=== PATIENT | female | born 1980 | race Caucasian/White ===

== ENCOUNTER 2016-03-21 08:16 | Emergency (ER) ==
[2016-03-21 08:22] VITALS: BP 129/91; TEMP 98.2; BMI 42.1
--- NOTE | 2016-03-21 08:40 | ED.PDOC ---
General ED Provider: Dr. LEXIS DRIVER Chief Complaint: Back Pain Stated Complaint: low back pain Time Seen by Physician: 08:16 (seen with MAY at all times ) Mode of Arrival: Walk-In Information Source: Patient Exam Limitations: No limitations Primary Care Provider: JON TELLES Nursing and Triage Documentation Reviewed and Agree: Yes Musculoskeletal Complaint Exam - Back Pain Complaint/Exam Mechanism of Injury: Reports: No known trauma Onset/Duration: chronic Symptoms Are: Still present Timing: Intermittent Episodes Lasting: Hours Initial Severity: Moderate Current Severity: Moderate Character: Reports: Spasmodic, Stiffness Aggravating: Reports: Movements, Lifting, Bending, Walking Alleviating: Reports: Rest, Position Associated Signs and Symptoms: Denies: Swelling, Redness, Bruising, Fever, Weakness, Numbness, Tingling, Abdominal pain, Flank pain, Bladder incontinence, Bowel incontinence, Weight loss, Pain with weight bearing Related History: Reports: Similar episode Cauda Equina Risk Factors: Reports: None Epidural Abcess Risk Factors: Reports: None Related Surgical History: Reports: None Focal Tenderness: No Paraspinal Muscle Tenderness: No Paraspinal Muscle Spasm: No Scoliosis: No Lordosis: No Kyphosis: No SLR Test: Right Negative, Left Negative Hip Motion Testing Pain: Right Negative, Left Negative Focal Weakness: Present: None Focal Sensory Loss: Present: None Gait: Present: Normal Differential Diagnoses: Strain, Sprain Review of Systems - Review Of Systems Constitutional: Reports: No symptoms Eyes: Reports: No symptoms Ears, Nose, Mouth, Throat: Reports: No symptoms Respiratory: Reports: No symptoms Cardiac: Reports: No symptoms GI: Reports: No symptoms : Reports: No symptoms Musculoskeletal: Reports: Back pain Skin: Reports: No symptoms Neurological: Reports: No symptoms Endocrine: Reports: No symptoms Hematologic/Lymphatic: Reports: No symptoms All Other Systems: Reviewed and Negative Past Medical History - Past Medical History Endocrine: Reports: None Cardiovascular: Reports: Hypertension Respiratory: Reports: None Hematological: Reports: None Gastrointestinal: Reports: None Genitourinary: Reports: Kidney stones Neuro/Psych: Reports: None Musculoskeletal: Reports: Joint Pain Cancer: Reports: None Last Menstrual Period: feb 2016 - Surgical History General Surgical History: Reports: , Other (lithotrypsy), Unknown - Family History Family History: Reports: Unknown - Social History Smoking Status: Current every day smoker, Light tobacco smoker Hx Substance Use: No Alcohol Screening: None Physical Exam - Physical Exam Appearance: Well-appearing, No pain distress, Well-nourished Eyes: CONCEPCIÓN, EOMI, Conjunctiva clear ENT: Ears normal, Nose normal, Oropharynx normal Respiratory: Airway patent, Breath sounds clear, Breath sounds equal, Respirations nonlabored Cardiovascular: RRR, Pulses normal, No rub, No murmur GI/: Soft, Nontender, No masses, Bowel sounds normal, No Organomegaly Musculoskeletal: Normal strength, ROM intact, No edema, No calf tenderness Skin: Warm, Dry, Normal color Neurological: Sensation intact, Motor intact, Reflexes intact, Cranial nerves intact, Alert, Oriented Psychiatric: Affect appropriate, Mood appropriate Critical Care Note - Critical Care Note Total Time (mins): 0 Course - Course Vital Signs: Temp Pulse Resp BP Pulse Ox 03/21/16 08:16 98.2 F 83 20 129/91 H 97 Departure - Departure Time of Disposition: 08:39 Disposition: HOME SELF-CARE Discharge Problem: Backache Instructions: Back Pain (ED) Condition: Good Pt referred to PMD for follow-up: No Allergies/Adverse Reactions: Allergies ciprofloxacin [From Cipro] Allergy (Intermediate, Verified 03/21/16 08:23) low b/p Home Medications: Ambulatory Orders Lisinopril/Hydrochlorothiazide [Lisinopril-Hctz 20-12.5 Mg Tab] 1 each PO BID Hydrocodone/Acetaminophen [[place] 5-325 Tablet] 1 each PO Q6HR PRN #12 tablet 01/25
== END 2016-03-21 08:48 | disposition home or self-care (01) ==
LOC: ED 08:16
DX: M54.5 Low back pain (principal); F17.210 Nicotine dependence, cigarettes, uncomplicated
CPT/HCPCS: 99282

== ENCOUNTER 2016-05-22 13:03 | Emergency (ER) ==
[2016-05-22 13:09] VITALS: BP 143/95; TEMP 97.7; BMI 41.5
[2016-05-22] MEDS ORDERED: DECADRON 4 MG/ML SDV IM STA (13:12)
[2016-05-22] MEDS ORDERED: MORPHINE 4 MG/ML SYRINGE IM STA (13:12)
[2016-05-22] MEDS ORDERED: ZOFRAN 4 MG/2 ML IM STA (13:12)
[2016-05-22] MEDS ORDERED: TORADOL IM STA (13:12)
[2016-05-22] MEDS ORDERED: VALIUM SYRINGE IM STA (13:13)
[2016-05-22 13:24] LABS: BILIRUBIN,URINE Negative (NEGATIVE); KETONES,URINE Negative (NEGATIVE); LEUKOCYTE ESTERASE ,URINE 2+ (NEGATIVE); NITRITE,URINE Negative (NEGATIVE); PH,URINE 5.5 (5-9); PROTEIN,URINE Negative (NEGATIVE); URINE, BLOOD 1+ (NEGATIVE)
[2016-05-22 13:27] LABS: ADD URINE MICROSCOPIC YES
[2016-05-22 13:28] LABS: BACTERIA,URINE 1+ (NOT PRESENT)
--- NOTE | 2016-05-22 13:47 | ED.PDOC ---
General ED Provider: Dr. LEXIS DRIVER Chief Complaint: Back Pain Stated Complaint: back pain Time Seen by Physician: 13:00 Mode of Arrival: Walk-In Information Source: Patient Exam Limitations: No limitations Nursing and Triage Documentation Reviewed and Agree: Yes Musculoskeletal Complaint Exam - Back Pain Complaint/Exam Mechanism of Injury: Reports: No known trauma Onset/Duration: today Symptoms Are: Still present Timing: Constant Episodes Lasting: Hours Initial Severity: Moderate Current Severity: Moderate Location: Reports: Radiating (left leg) Character: Reports: Throbbing, Spasmodic, Stiffness Aggravating: Reports: Movements, Lifting, Bending, Walking Alleviating: Reports: Rest, Position Associated Signs and Symptoms: Denies: Swelling, Redness, Bruising, Fever, Weakness, Numbness, Tingling, Abdominal pain, Flank pain, Bladder incontinence, Bowel incontinence, Weight loss, Pain with weight bearing Related History: Reports: Similar episode TAD Risk Factors: Reports: None AAA Risk Factors: Reports: None Cauda Equina Risk Factors: Reports: None Epidural Abcess Risk Factors: Reports: None Related Surgical History: Reports: None Focal Tenderness: No Paraspinal Muscle Tenderness: No Paraspinal Muscle Spasm: No Scoliosis: No Lordosis: No Kyphosis: No SLR Test: Right Negative, Left Negative Hip Motion Testing Pain: Right Negative, Left Negative Focal Weakness: Present: None Focal Sensory Loss: Present: None Gait: Present: Abnormal Differential Diagnoses: Strain, Sprain Review of Systems - Review Of Systems Constitutional: Reports: No symptoms Eyes: Reports: No symptoms Ears, Nose, Mouth, Throat: Reports: No symptoms Respiratory: Reports: No symptoms Cardiac: Reports: No symptoms GI: Reports: No symptoms : Reports: No symptoms Musculoskeletal: Reports: Back pain Skin: Reports: No symptoms Neurological: Reports: No symptoms Endocrine: Reports: No symptoms Hematologic/Lymphatic: Reports: No symptoms All Other Systems: Reviewed and Negative Past Medical History - Past Medical History Endocrine: Reports: None Cardiovascular: Reports: Hypertension Respiratory: Reports: None Hematological: Reports: None Gastrointestinal: Reports: None Genitourinary: Reports: Kidney stones Neuro/Psych: Reports: None Musculoskeletal: Reports: Joint Pain Cancer: Reports: None Last Menstrual Period: last week - Surgical History General Surgical History: Reports: , Other (lithotrypsy), Unknown - Family History Family History: Reports: Unknown - Social History Smoking Status: Current every day smoker, Light tobacco smoker Hx Substance Use: No Alcohol Screening: None Physical Exam - Physical Exam Appearance: Well-appearing, No pain distress, Well-nourished Eyes: CONCEPCIÓN, EOMI, Conjunctiva clear ENT: Ears normal, Nose normal, Oropharynx normal Respiratory: Airway patent, Breath sounds clear, Breath sounds equal, Respirations nonlabored Cardiovascular: RRR, Pulses normal, No rub, No murmur GI/: Soft, Nontender, No masses, Bowel sounds normal, No Organomegaly Musculoskeletal: Normal strength, ROM intact, No edema, No calf tenderness Skin: Warm, Dry, Normal color Neurological: Sensation intact, Motor intact, Reflexes intact, Cranial nerves intact, Alert, Oriented Psychiatric: Affect appropriate, Mood appropriate Critical Care Note - Critical Care Note Total Time (mins): 0 Course - Course Orders, Labs, Meds: Lab Review 05/22/16 13:20 Urine Color Yellow Urine Clarity Clear Urine pH 5.5 Ur Specific [place] <=1.005 Urine Protein Negative Urine Glucose (UA) Negative Urine Ketones Negative Urine Blood 1+ Urine Nitrite Negative Urine Bilirubin Negative Urine Urobilinogen 0.2 Ur Leukocyte Esterase 2+ Urine Microscopic RBC 2-5 Urine Microscopic WBC 30-50 Ur Squamous Epith Cells 2-5 Urine Bacteria 1+ Orders Category Date Time Status URINALYSIS C & S IF INDICATED Stat LAB 05/22/16 13:20 Completed URINE CULTURE Stat LAB 05/22/16 13:27 Received Dexamethasone 4 mg/ml Inj [Decadron 4 mg/ml Sdv] MEDS 05/22/16 13:12 Discontinued 4 mg IM ONCE STA Diazepam Syringe [Valium Syringe] MEDS 05/22/16 13:13 Discontinued 2 mg IM ONCE STA Ketorolac Tromethamine [Toradol] MEDS 05/22/16 13:12 Discontinued 30 mg IM ONCE STA Morphine Sulfate [Morphine 4 mg/ml Syringe] MEDS 05/22/16 13:12 Discontinued 4 mg IM ONCE STA Ondansetron HCl/Pf [Zofran 4 mg/2 ml] MEDS 05/22/16 13:12 Discontinued 4 mg IM ONCE STA Medications Discontinued Medications Generic Name Dose Route Start Last Admin Trade Name Freq PRN Reason Stop Dose Admin Dexamethasone Sodium Phosphate 4 mg 05/22/16 13:12 05/22/16 13:34 Decadron 4 Mg/Ml Sdv IM 05/22/16 13:13 4 mg ONCE STA Administration Diazepam 2 mg 05/22/16 13:13 05/22/16 13:38 Valium Syringe IM 05/22/16 13:14 2 mg ONCE STA Administration Ketorolac Tromethamine 30 mg 05/22/16 13:12 05/22/16 13:36 Toradol IM 05/22/16 13:13 30 mg ONCE STA Administration Morphine Sulfate 4 mg 05/22/16 13:12 05/22/16 13:30 Morphine 4 Mg/Ml Syringe IM 05/22/16 13:13 4 mg ONCE STA Administration Ondansetron HCl 4 mg 05/22/16 13:12 05/22/16 13:31 Zofran 4 Mg/2 Ml IM 05/22/16 13:13 4 mg ONCE STA Administration Vital Signs: Temp Pulse Resp BP Pulse Ox 05/22/16 13:04 97.7 F 82 16 143/95 H 97 Departure - Departure Time of Disposition: 13:46 Disposition: HOME SELF-CARE Discharge Problem: Backache Sciatica Qualifiers: Laterality: unspecified laterality Qualifier Code: (M54.30) Sciatica, unspecified side Instructions: Sciatica (ED), Lumbar Radiculopathy (ED) Condition: Good Pt referred to PMD for follow-up: No Additional Instructions: Please call your Family Physician as soon as possible to schedule a follow-up appointment. Prescriptions: Hydrocodone/Acetaminophen [[place] 5-325 Tablet] 1 each PO Q6HR PRN #7 tablet PRN Reason: PAIN Allergies/Adverse Reactions: Allergies ciprofloxacin [From Cipro] Allergy (Intermediate, Verified 05/22/16 13:09) low b/p Home Medications: Ambulatory Orders Lisinopril/Hydrochlorothiazide [Lisinopril-Hctz 20-12.5 Mg Tab] 1 each PO BID Hydrocodone/Acetaminophen [[place] 5-325 Tablet] 1 each PO Q6HR PRN #7 tablet Disposition Discussed With: Patient, Family
[2016-05-22] MEDS ORDERED: LIDOCAINE 1 % AMP 5 ML (SUTURES) IM STA (13:48)
[2016-05-22] MEDS ORDERED: ROCEPHIN IM STA (13:48)
[2016-05-29 13:11] LABS: AEROBIC + ANAEROB SUSC Final report (.); BACTERIA IDENTIFICATION Final report (.)
== END 2016-05-22 14:44 | disposition home or self-care (01) ==
LOC: ED 13:03
DX: N39.0 Urinary tract infection, site not specified (principal); M54.42 Lumbago with sciatica, left side; F17.210 Nicotine dependence, cigarettes, uncomplicated; Z87.442 Personal history of urinary calculi
CPT/HCPCS: 36415; 81001; 87077; 87086; 87186; 96372; 99283

== ENCOUNTER 2016-06-25 00:11 | Emergency (ER) ==
[2016-06-25 00:14] VITALS: BMI 41.5
[2016-06-25 00:22] VITALS: BP 138/99; TEMP 98.6
[2016-06-25] MEDS ORDERED: PHENERGAN 25 MG/ML VIAL IM STA (00:28)
[2016-06-25] MEDS ORDERED: DILAUDID 2 MG/ML SYRINGE IM STA (00:28)
--- NOTE | 2016-06-25 00:31 | ED.PDOC ---
General ED Provider: Dr. DRAKE CARL-ER Chief Complaint: Back Pain Stated Complaint: jarek got sciatica--jarek been dealing with it for years...recently saw hillary rodney and have mri of the back pending--noting pain tonite going down the left leg Time Seen by Physician: 00:30 Mode of Arrival: Wheelchair Information Source: Patient Exam Limitations: No limitations Primary Care Provider: JON TELLES Nursing and Triage Documentation Reviewed and Agree: Yes Musculoskeletal Complaint Exam - Back Pain Complaint/Exam Mechanism of Injury: Reports: No known trauma Onset/Duration: several mos Symptoms Are: Still present Timing: Constant Initial Severity: Mild Current Severity: Moderate Location: Reports: Discrete Character: Reports: Dull, Aching, Spasmodic Aggravating: Reports: Movements, Lifting, Bending, Walking Alleviating: Reports: None Associated Signs and Symptoms: Denies: Swelling, Redness, Bruising, Fever, Weakness, Numbness, Tingling, Abdominal pain, Flank pain, Bladder incontinence, Bowel incontinence, Weight loss, Pain with weight bearing Related History: Reports: Previous back injury Epidural Abcess Risk Factors: Reports: None Related Surgical History: Reports: None Focal Tenderness: Yes Paraspinal Muscle Tenderness: Yes Paraspinal Muscle Spasm: No Scoliosis: No Lordosis: No Kyphosis: No SLR Test: Right Negative, Left Negative Hip Motion Testing Pain: Left Negative Focal Weakness: Present: None Focal Sensory Loss: Present: None Gait: Present: Normal Differential Diagnoses: Arthritis, Herniated Disk, Strain, Sprain Review of Systems - Review Of Systems Constitutional: Reports: No symptoms Eyes: Reports: No symptoms Ears, Nose, Mouth, Throat: Reports: No symptoms, Throat swelling Respiratory: Reports: No symptoms Cardiac: Reports: No symptoms GI: Reports: No symptoms : Reports: No symptoms Musculoskeletal: Reports: Back pain Skin: Reports: No symptoms Neurological: Reports: No symptoms Endocrine: Reports: No symptoms Hematologic/Lymphatic: Reports: No symptoms All Other Systems: Reviewed and Negative Past Medical History - Past Medical History Endocrine: Reports: None Cardiovascular: Reports: Hypertension Respiratory: Reports: None Hematological: Reports: None Gastrointestinal: Reports: None Genitourinary: Reports: Kidney stones Neuro/Psych: Reports: None Musculoskeletal: Reports: Joint Pain Cancer: Reports: None Last Menstrual Period: 2 weeks ago - Surgical History General Surgical History: Reports: , Other (lithotrypsy), Unknown - Family History Family History: Reports: Unknown - Social History Smoking Status: Current every day smoker, Light tobacco smoker Hx Substance Use: No Alcohol Screening: None Lives: With family - Immunizations Tetanus Shot up to Date: Yes Physical Exam - Physical Exam Appearance: Well-appearing, No pain distress, Well-nourished Pain Distress: Moderate Eyes: CONCEPCIÓN ENT: Ears normal, Nose normal, Oropharynx normal Neck: Supple Respiratory: Airway patent Cardiovascular: RRR, Pulses normal, No rub, No murmur GI/: Soft, Nontender, No masses, Bowel sounds normal, No Organomegaly Musculoskeletal: Limited ROM Skin: Warm, Dry, Normal color Neurological: Sensation intact, Motor intact, Reflexes intact, Cranial nerves intact, Alert, Oriented Psychiatric: Affect appropriate, Mood appropriate Re-Evaluation - Re-Evaluation Time of Re-Evaluation: 00:45 Status: Improved Vital Signs Stable: Yes Pain Level: 1 Appearance: NAD Lungs: Clear Skin: Warm and Dry Neuro: Alert and Oriented X3 CV: RRR Critical Care Note - Critical Care Note Total Time (mins): 0 Course - Course Orders, Labs, Meds: Orders Category Date Time Status Hydromorphone HCl/Pf [Dilaudid 2 mg/ml Syringe] MEDS 06/25/16 00:28 Stat 2 mg IM ONCE STA Promethazine HCl [Phenergan 25 mg/ml Vial] MEDS 06/25/16 00:28 Stat 25 mg IM ONCE STA Medications Generic Name Dose Route Start Last Admin Trade Name Freq PRN Reason Stop Dose Admin Hydromorphone HCl 2 mg 06/25/16 00:28 Dilaudid 2 Mg/Ml Syringe IM 06/25/16 00:29 ONCE STA Promethazine HCl 25 mg 06/25/16 00:28 Phenergan 25 Mg/Ml Vial IM 06/25/16 00:29 ONCE STA Vital Signs: Temp Pulse Resp BP Pulse Ox 06/25/16 00:15 98.6 F 77 20 138/99 H 94 L Departure - Departure Time of Disposition: 00:31 Disposition: HOME SELF-CARE Discharge Problem: Sciatica Qualifiers: Laterality: unspecified laterality Qualifier Code: (M54.30) Sciatica, unspecified side Instructions: Sciatica (ED), Lumbar Radiculopathy (ED) Condition: Good Pt referred to PMD for follow-up: Yes Additional Instructions: f/u with pcp Allergies/Adverse Reactions: Allergies ciprofloxacin [From Cipro] Allergy (Intermediate, Verified 06/25/16 00:22) low b/p Home Medications: Ambulatory Orders Lisinopril/Hydrochlorothiazide [Lisinopril-Hctz 20-12.5 Mg Tab] 1 each PO BID Disposition Discussed With: Patient, Family
== END 2016-06-25 00:45 | disposition home or self-care (01) ==
LOC: ED 00:11
DX: M54.32 Sciatica, left side (principal); F17.210 Nicotine dependence, cigarettes, uncomplicated
CPT/HCPCS: 96372; 99282